=== PATIENT | male | born 1955 | race Caucasian/White ===

== ENCOUNTER 2019-04-19 10:43 | Emergency (ER) | payer MEDICAID ==
[~2019-04-19] VITALS: Ht 182.9 cm; Wt 78.6 kg
[~2019-04-19 10:43] MED LIST: LIDOcaine 1% W/epiNEPHrine 1:100,000 20ml vial ONE
[2019-04-19 10:50] VITALS: BP 155/90
[2019-04-19] MEDS ORDERED: CEPH-572 PO (12:29)
[2019-04-19] MEDS ORDERED: SULF1TAB49 PO (12:29)
== END 2019-04-19 12:43 | disposition home or self-care (01) ==
LOC: ER 10:45
DX: K13.0 Diseases of lips (principal); J44.9 Chronic obstructive pulmonary disease, unspecified; F17.200 Nicotine dependence, unspecified, uncomplicated; Z79.899 Other long term (current) drug therapy
CPT/HCPCS: 10060; 99283

== ENCOUNTER 2019-04-22 17:33 | Inpatient (IN) | payer MEDICARE, MEDICAID ==
[~2019-04-22] VITALS: Ht 180.3 cm; Wt 83.0 kg
[~2019-04-22 17:33] MED LIST changes: +CEPH-572 PO; -LIDOcaine 1% W/epiNEPHrine 1:100,000 20ml vial ONE; +SULF1TAB49 PO
[2019-04-22 17:50] LABS: BASOPHILS # (AUTO) 0.1 X10'3 (0-0.2); BASOPHILS % (AUTO) 0.5 % (0-1); EOSINOPHILS # (AUTO) 0.1 X10'3 (0-0.9); EOSINOPHILS % (AUTO) 1.2 % (0-6); HEMATOCRIT 37.1 % (42.0-52.0); HEMOGLOBIN 12.6 g/dl (14.0-17.9); LYMPHOCYTES # (AUTO) 1.5 X10'3 (1.1-4.8); LYMPHOCYTES % (AUTO) 13.5 % (21-51); MEAN CORPUSCULAR HGB CONC 33.9 g/dL (33.0-36.5); MEAN CORPUSCULAR VOLUME 91.6 FL (78-98); MEAN PLATELET VOLUME 8.7 FL (7.4-10.4); MONOCYTES # (AUTO) 1.2 X10'3 (0-0.9); MONOCYTES % (AUTO) 10.1 % (2-12); NEUTROPHILS # (AUTO) 8.5 X10'3 (1.8-7.7); NEUTROPHILS % (AUTO) 74.7 % (42-75); PLATELET COUNT 234 X10'3 (140-440); RED BLOOD COUNT 4.06 X10'6 (4.70-6.10); RED CELL DISTRIBUTION WIDTH 14.5 % (11.5-14.5); WHITE BLOOD COUNT 11.4 X10'3 (4.5-11.0)
[2019-04-22 18:03] LABS: ALANINE AMINOTRANSFERASE 28 U/L (12-78); ALBUMIN 2.7 G/DL (3.4-5.0); ALBUMIN/GLOBULIN RATIO 0.8 (1.1-1.5); ANION GAP 9 (8-16); ASPARTATE AMINO TRANSFERASE 18 U/L (10-37); BILIRUBIN,TOTAL 0.4 MG/DL (0.1-1.0); BLOOD UREA NITROGEN 39 MG/DL (7-18); BUN/CREATININE RATIO 12.1 (5.4-32.0); CALCIUM 7.8 MG/DL (8.5-10.1); CHLORIDE 99 MMOL/L (99-107); CREATININE 3.22 MG/DL (0.60-1.10); GLUCOSE 145 MG/DL (70-104); POTASSIUM 3.9 MMOL/L (3.5-5.1); SODIUM 132 MMOL/L (135-145); TOTAL CARBON DIOXIDE 24.1 MMOL/L (24-32); TOTAL PROTEIN 6.3 G/DL (6.4-8.2); eGFR 19 ML/MIN
[2019-04-22 18:15] LABS: MAGNESIUM 2.1 MG/DL (1.5-2.4)
[2019-04-22 18:16] LABS: ALKALINE PHOSPHATASE 78 IU/L (46-116)
[2019-04-22] MEDS ORDERED: ARIP10TA17 PO (19:31)
[2019-04-22] MEDS ORDERED: CEPH500C2 PO (19:31)
[2019-04-22] MEDS ORDERED: CLOP75TA35 PO (19:31)
[2019-04-22] MEDS ORDERED: BACDS PO (19:31)
[2019-04-22] MEDS ORDERED: LISI-600 PO (19:31)
[2019-04-22] MEDS ORDERED: ALLO300T8 PO (19:31)
[2019-04-22] MEDS ORDERED: ATOR40TA72 PO (19:31)
[2019-04-22] MEDS ORDERED: TRAZ-219 PO (19:31)
[2019-04-22] MEDS ORDERED: DILT120T3 PO (19:31)
[2019-04-22] MEDS ORDERED: GABA600T13 PO (19:31)
[2019-04-22] MEDS ORDERED: CARV25TA2 PO (19:31)
[2019-04-22] MEDS ORDERED: AMLO5TAB16 PO (19:31)
[2019-04-22] MEDS ORDERED: acetaminophen 325mg tablet PO PRN (22:10)
[2019-04-22] MEDS ORDERED: ondansetron/PF 4mg/2ml inj IV PRN (22:10)
[2019-04-22] MEDS ORDERED: mag hydrox/Alum hydrox/simeth 30ml oral suspension PO PRN (22:10)
[2019-04-22] MEDS ORDERED: magnesium hydroxide 30ml (MOM) UD suspension PO PRN (22:10)
--- NOTE | 2019-04-22 22:18 | NUR ---
Prior to calling admit report to the floor, pt became hypotensive SBP 70 with no evidence of CP/SOB/AMS. Dr. Cruz and Dr. Wu notified. 1L NS bolus initiated and PCU admission placed on hold at this time to stabilize pt.
--- NOTE | 2019-04-22 22:23 | NUR ---
Dr. Wu at bedside for US. 75/50 manual BP by Pedro Gallagher RN
[2019-04-22 22:29] LABS: URINE AMPHETAMINE SCREEN POSITIVE (Neg); URINE BARBITUATE SCREEN NEGATIVE (Neg); URINE BENZODIAZEPINES SCREEN NEGATIVE (Neg); URINE CANNABINOID SCREEN POSITIVE (Neg); URINE COCAINE SCREEN NEGATIVE (Neg); URINE METHADONE SCREEN NEGATIVE (Neg); URINE OPIATE SCREEN NEGATIVE (Neg); URINE PHENCYCLIDINE SCREEN NEGATIVE (Neg)
[2019-04-22] MEDS: normal saline 1000ml 1,000 ML IV SCH (22:59)
[2019-04-23] VITALS (8 sets, daily range): BP systolic 91–121; BP diastolic 52–71
--- NOTE | 2019-04-23 | NUR ---
Patient in room PCU 3025. I have received report from Calderon GAMING (ER) and had the opportunity to ask questions and assume patient care. Patient arrived to PCU, by gurney and ambulated to bed with assistance. A&O x 4, vitals taken and WNL, tele monitoring initiated. Patient is hungry but in good spirits. He is oriented to his room and his call light.
--- NOTE | 2019-04-23 03:00 | NUR ---
Called Dr. Cruz, patient's BP is 83/45 (57), HR 66, new orders for one time dose of calcium gluconate IV 2g and 500mL fluid bolus.
[2019-04-23] MEDS ORDERED: calcium gluconate inj. 2 GM in normal saline 100ml IV soln 100 ML IV ONE (03:15)
[2019-04-23] MEDS ORDERED: normal saline 500ml IV soln 500 ML IV ONE (03:15)
[2019-04-23] MEDS: normal saline 1000ml 1,000 ML IV SCH ×2 (03:46→15:44)
[2019-04-23 05:56] LABS: BASOPHILS % (AUTO) 0.5 % (0-1); EOSINOPHILS # (AUTO) 0.1 X10'3 (0-0.9); EOSINOPHILS % (AUTO) 1.4 % (0-6); HEMATOCRIT 36.2 % (42.0-52.0); HEMOGLOBIN 12.5 g/dl (14.0-17.9); LYMPHOCYTES # (AUTO) 1.4 X10'3 (1.1-4.8); LYMPHOCYTES % (AUTO) 19.5 % (21-51); MEAN CORPUSCULAR HEMOGLOBIN 31.6 PG (27.0-31.0); MEAN CORPUSCULAR HGB CONC 34.5 g/dL (33.0-36.5); MEAN CORPUSCULAR VOLUME 91.7 FL (78-98); MONOCYTES # (AUTO) 0.6 X10'3 (0-0.9); MONOCYTES % (AUTO) 8.2 % (2-12); NEUTROPHILS # (AUTO) 5.2 X10'3 (1.8-7.7); NEUTROPHILS % (AUTO) 70.4 % (42-75); PLATELET COUNT 231 X10'3 (140-440); RED BLOOD COUNT 3.95 X10'6 (4.70-6.10); RED CELL DISTRIBUTION WIDTH 14.3 % (11.5-14.5); WHITE BLOOD COUNT 7.4 X10'3 (4.5-11.0)
[2019-04-23 06:21] LABS: ALBUMIN 2.5 G/DL (3.4-5.0); ANION GAP 7 (8-16); BLOOD UREA NITROGEN 26 MG/DL (7-18); CALCIUM 8.6 MG/DL (8.5-10.1); CHLORIDE 107 MMOL/L (99-107); CREATININE 1.63 MG/DL (0.60-1.10); GLUCOSE 139 MG/DL (70-104); SODIUM 140 MMOL/L (135-145); TOTAL CARBON DIOXIDE 26.4 MMOL/L (24-32); eGFR 43 ML/MIN
--- NOTE | 2019-04-23 06:38 | NUR ---
Problems reprioritized. Patient report given, questions answered & plan of care reviewed with Bernice GAMING and Dolores (student).
--- NOTE | 2019-04-23 06:47 | NUR ---
Patient in room PCU 3025. I have received report from AMBERLY CHRISTOPHER and had the opportunity to ask questions and assume patient care.
[2019-04-23] MEDS: amLODIPine 5mg tablet PO SCH (08:00)
[2019-04-23] MEDS: lisinopril 20mg tablet PO SCH ×2 (08:00→20:13)
[2019-04-23] MEDS: allopurinol 300 MG tablet PO SCH (08:05)
[2019-04-23] MEDS: gabapentin 300mg capsule PO SCH ×2 (08:05→20:12)
[2019-04-23] MEDS: ARIPIPRAZOLE 10 MG TABLET PO SCH (08:05)
[2019-04-23] MEDS: atorvastatin 20mg tablet PO SCH (08:06)
[2019-04-23] MEDS: clopidogrel 75mg tablet PO SCH (08:06)
[2019-04-23] MEDS: nicotine 14mg patch - 24hr TD SCH (08:07)
[2019-04-23] MEDS: heparin, porcine 5000 units/ml vial SQ SCH ×2 (08:09→20:13)
[2019-04-23] MEDS ORDERED: pneumococcal 23-VAL P-sac vacc 25 mcg/0.5ml vial IMVAC ONE (10:00)
--- NOTE | 2019-04-23 10:19 | NUR ---
jhonny reyes and let Dr. Malcolm know that pt has abcess below nose and was on abx out pt that have been held. he will look into it. Addendum: 04/23/19 at 1020 by Bernice Rand RN also aware am bp meds held due to low bp
--- NOTE | 2019-04-23 11:40 | NUR ---
Malnutrition consult: Pt admit w/ syncope hx vertigo HTN, COPD, bladder CA, and current meth abuse. Positive for meth on admit. PT has normal strength, no edema, current wt is pt stated, and well-nourished/well-developed per ER MD note. PO documentation pending. At this time pt lack minimum malnutrition criteria. Will continue to monitor. Addendum: 04/23/19 at [address] Amended: Links added.
--- NOTE | 2019-04-23 14:15 | NUR ---
paged vascular again for carotid u/s
--- NOTE | 2019-04-23 16:01 | NUR ---
paged Dr. Malcolm PAGER ID: [phone] MESSAGE: Bernice flores [phone] Keating prelim carotid paper report in chart if you would like to see it I can bring to you. 0-39% both sides
--- NOTE | 2019-04-23 18:00 | NUR ---
Patient in room PCU 3025. I have received report from Bernice GAMING and had the opportunity to ask questions and assume patient care.
--- NOTE | 2019-04-23 18:29 | NUR ---
Problems reprioritized. Patient report given, questions answered & plan of care reviewed with AMBERLY RAY AND AMBERLY GALARZA.
--- NOTE | 2019-04-23 18:30 | NUR ---
Patient in room PCU 3025. I have received report from Bernice GAMING and had the opportunity to ask questions and assume patient care with shweta GAMING.
--- NOTE | 2019-04-23 18:34 | NUR ---
Student Medication Administration: For this medication-pass time frame, all medication were reviewed, dispensed, administered and documented per hospital policy by ASHUTOSH.
--- NOTE | 2019-04-23 18:34 | NUR ---
Student documentation: I have reviewed and agree with all interventions, assessments performed and documented by ASHUTOSH.
[2019-04-23] MEDS: sulfamethoxazole/trimethoprim DS (800/160mg) tablet PO SCH (20:12)
[2019-04-23] MEDS ORDERED: traZODone 50mg tablet PO SCH (21:00)
[2019-04-24] MEDS: normal saline 1000ml 1,000 ML IV SCH (01:59)
[2019-04-24 03:00] VITALS: BP 131/78
[2019-04-24 05:16] LABS: BASOPHILS % (AUTO) 0.6 % (0-1); EOSINOPHILS # (AUTO) 0.2 X10'3 (0-0.9); EOSINOPHILS % (AUTO) 2.2 % (0-6); HEMATOCRIT 37.9 % (42.0-52.0); HEMOGLOBIN 12.9 g/dl (14.0-17.9); LYMPHOCYTES # (AUTO) 2.1 X10'3 (1.1-4.8); MEAN CORPUSCULAR HEMOGLOBIN 31.5 PG (27.0-31.0); MEAN CORPUSCULAR VOLUME 92.6 FL (78-98); MEAN PLATELET VOLUME 8.8 FL (7.4-10.4); MONOCYTES # (AUTO) 0.5 X10'3 (0-0.9); MONOCYTES % (AUTO) 7.7 % (2-12); NEUTROPHILS % (AUTO) 58.5 % (42-75); PLATELET COUNT 258 X10'3 (140-440); RED CELL DISTRIBUTION WIDTH 14.4 % (11.5-14.5); WHITE BLOOD COUNT 6.8 X10'3 (4.5-11.0)
[2019-04-24 05:27] LABS: ALBUMIN 2.6 G/DL (3.4-5.0); ANION GAP 8 (8-16); BLOOD UREA NITROGEN 18 MG/DL (7-18); BUN/CREATININE RATIO 17.1 (5.4-32.0); CALCIUM 8.4 MG/DL (8.5-10.1); CHLORIDE 109 MMOL/L (99-107); CREATININE 1.05 MG/DL (0.60-1.10); GLUCOSE 92 MG/DL (70-104); POTASSIUM 4.6 MMOL/L (3.5-5.1); SODIUM 140 MMOL/L (135-145); TOTAL CARBON DIOXIDE 22.6 MMOL/L (24-32); eGFR 71 ML/MIN
--- NOTE | 2019-04-24 05:54 | NUR ---
[place] documentation: I have reviewed and agree with all interventions,meds given, assessments performed and documented by Chrystal GAMING.
--- NOTE | 2019-04-24 06:15 | NUR ---
Patient in room PCU 3025B. I have received report from Mariana GAMING and Chrystal GAMING and had the opportunity to ask questions and assume patient care.
--- NOTE | 2019-04-24 06:17 | NUR ---
Problems reprioritized. Patient report given, questions answered & plan of care reviewed with Shanice GAMING.
--- NOTE | 2019-04-24 06:17 | NUR ---
Problems reprioritized. Patient report given, questions answered & plan of care reviewed with Shanice GAMING.
[2019-04-24 06:30] VITALS: BP 142/81
[2019-04-24] MEDS: gabapentin 300mg capsule PO SCH (07:27)
[2019-04-24] MEDS: ARIPIPRAZOLE 10 MG TABLET PO SCH (07:27)
[2019-04-24] MEDS: atorvastatin 20mg tablet PO SCH (07:27)
[2019-04-24] MEDS: nicotine 14mg patch - 24hr TD SCH (07:27)
[2019-04-24] MEDS: clopidogrel 75mg tablet PO SCH (07:27)
[2019-04-24] MEDS: heparin, porcine 5000 units/ml vial SQ SCH (07:27)
[2019-04-24] MEDS: allopurinol 300 MG tablet PO SCH (07:28)
[2019-04-24] MEDS: lisinopril 20mg tablet PO SCH (07:28)
[2019-04-24] MEDS: sulfamethoxazole/trimethoprim DS (800/160mg) tablet PO SCH (07:28)
[2019-04-24] MEDS: amLODIPine 5mg tablet PO SCH (07:28)
[2019-04-24 08:00] VITALS: BP_SYST 111; BP_SYST 124; BP_SYST 131; BP_DIAS 60; BP_DIAS 74; BP_DIAS 79
[2019-04-24 11:00] VITALS: BP 111/60
--- NOTE | 2019-04-24 11:00 | NUR ---
WOC in to check on pt's wound located on premaxillary area. Abscess had apparently been I&D'ed already, though wound presented with no lory drainage at this time. Periwound erythema was pronounced and area is still swollen. Wound bed covered by 100% yellow slough at this time. As pt was getting ready to discharge, measured wound. Wound have recommended leaving it SHEREE with daily cleansing unless drainage presented.
--- NOTE | 2019-04-24 13:15 | NUR ---
Per MD, patient stable for discharge. Discharge packet completed and provided to patient. All questions answered and followup directions provided--stay hydrated, follow up within 6 months with renal ultrasound, followup with PCP within two weeks. IV removed with catheter intact and tele monitor reviewed. Hospital milk house worker approved cost of taxi ride for patient. Patient escorted by RN via wheelchair and taken home via taxi.
== END 2019-04-24 12:47 | disposition home or self-care (01) | DRG 682 ==
LOC: ER 17:33 → ED HOLD 22:21 → PCU 3S 23:39
PROVIDERS: ADMIT Hospitalist; ATTEND Family Medicine
DX: N17.0 Acute kidney failure with tubular necrosis (principal); E43 Unspecified severe protein-calorie malnutrition; E87.1 Hypo-osmolality and hyponatremia; E86.0 Dehydration; F17.210 Nicotine dependence, cigarettes, uncomplicated; I10 Essential (primary) hypertension; I25.10 Atherosclerotic heart disease of native coronary artery without angina pectoris; I95.9 Hypotension, unspecified; W18.39XA Other fall on same level, initial encounter; R00.1 Bradycardia, unspecified; F15.10 Other stimulant abuse, uncomplicated; R55 Syncope and collapse; J44.9 Chronic obstructive pulmonary disease, unspecified; K52.9 Noninfective gastroenteritis and colitis, unspecified; R29.6 Repeated falls; Z82.49 Family history of ischemic heart disease and other diseases of the circulatory system; Z85.51 Personal history of malignant neoplasm of bladder; I25.2 Old myocardial infarction; Z86.14 Personal history of Methicillin resistant Staphylococcus aureus infection; Z95.5 Presence of coronary angioplasty implant and graft; Y93.89 Activity, other specified; Y92.89 Other specified places as the place of occurrence of the external cause; Y99.8 Other external cause status; Z68.25 Body mass index [BMI] 25.0-25.9, adult; Z71.6 Tobacco abuse counseling; Z79.899 Other long term (current) drug therapy; Z71.51 Drug abuse counseling and surveillance of drug abuser
CPT/HCPCS: 36415; 70450; 71045; 76775; 80048; 80053; 80305; 83605; 83735; 84484; 85025; 87081; 93005; 93306; 93880; 99285; G0378; J0610; J1644; J7030; J7040

== ENCOUNTER 2019-12-01 11:43 | Emergency (ER) | payer MEDICARE, MEDICAID ==
[~2019-12-01] VITALS: Ht 182.9 cm; Wt 80.0 kg
[~2019-12-01 11:43] MED LIST changes: +ALLO300T8 PO; +AMLO5TAB16 PO; +ARIP10TA17 PO; +ATOR40TA72 PO; +BACDS PO; -CEPH-572 PO; +CLOP75TA35 PO; +GABA600T13 PO; +LISI-600 PO; -SULF1TAB49 PO; +TRAZ-256 PO
[2019-12-01 11:56] VITALS: BP 112/71
[2019-12-01] MEDS ORDERED: BACDS PO (14:22)
[2019-12-01] MEDS ORDERED: AMOX-422 PO (14:22)
[2019-12-01] MEDS ORDERED: TETanus/Pertussis (Acell)/Diphther VAC/PF (Tdap-Adult) 0.5ml syringe IMVAC ONE (14:25)
== END 2019-12-01 14:52 | disposition home or self-care (01) ==
LOC: ER 11:43
DX: L03.113 Cellulitis of right upper limb (principal); I25.10 Atherosclerotic heart disease of native coronary artery without angina pectoris; I10 Essential (primary) hypertension; J44.9 Chronic obstructive pulmonary disease, unspecified; Z98.890 Other specified postprocedural states; Z79.899 Other long term (current) drug therapy
CPT/HCPCS: 90471; 90715; 99283

== ENCOUNTER 2020-08-21 16:37 | Emergency (ER) | payer MEDICAID, MEDICARE ==
[~2020-08-21] VITALS: Ht 182.9 cm; Wt 81.8 kg
[~2020-08-21 16:37] MED LIST changes: -BACDS PO; +CLOP75TA34 PO; -CLOP75TA35 PO; -LISI-600 PO; +LISI20TA28 PO; +SULF1TAB45 PO
[2020-08-21 16:40] VITALS: BP 102/59
[2020-08-21] MEDS ORDERED: SULF1TAB49 PO (17:27)
== END 2020-08-21 17:40 | disposition home or self-care (01) ==
LOC: ER 16:38
DX: R21 Rash and other nonspecific skin eruption (principal); L29.9 Pruritus, unspecified; I25.10 Atherosclerotic heart disease of native coronary artery without angina pectoris; I10 Essential (primary) hypertension; J44.9 Chronic obstructive pulmonary disease, unspecified; Z79.899 Other long term (current) drug therapy
CPT/HCPCS: 99283

== ENCOUNTER 2021-01-23 21:24 | Emergency (ER) | payer MEDICARE ==
[~2021-01-23] VITALS: Ht 182.9 cm; Wt 77.3 kg
[~2021-01-23 21:24] MED LIST changes: -ARIP10TA17 PO; +ARIP10TA57 PO
[2021-01-23 21:31] VITALS: BP 113/84
[2021-01-24] MEDS ORDERED: SULF1TAB49 PO (01:02)
[2021-01-24] MEDS ORDERED: MUPI22OI30 TOP (01:02)
[2021-01-24] MEDS ORDERED: ibuprofen tablet 400 MG TABLET PO ONE (01:05)
== END 2021-01-24 01:07 | disposition home or self-care (01) ==
LOC: ER 21:24
DX: M54.5 Low back pain (principal); L03.211 Cellulitis of face; I25.10 Atherosclerotic heart disease of native coronary artery without angina pectoris; I10 Essential (primary) hypertension; J44.9 Chronic obstructive pulmonary disease, unspecified; Z85.51 Personal history of malignant neoplasm of bladder; Z98.890 Other specified postprocedural states; Z79.2 Long term (current) use of antibiotics; Z79.899 Other long term (current) drug therapy
CPT/HCPCS: 99283

== ENCOUNTER 2025-05-25 09:58 | Outpatient (CLI) | payer MEDICARE, MEDICAID ==
[~2025-05-25] VITALS: Ht 180.3 cm; Wt 81.6 kg
[~2025-05-25 09:58] MED LIST changes: -ARIP10TA57 PO; +ARIP10TA87 PO; +GABA-1405 PO; -GABA600T13 PO; +SULF-16 PO; -SULF1TAB45 PO
[2025-05-25 10:35] LABS: TOTAL HEMOGLOBIN 16.7 G/dl (13.5-17.5)
[2025-05-25] MEDS: albuterol 2.5 MG/3 ML nebule NEB ONE (11:13)
[2025-05-25 11:17] VITALS: PULSE 69; RESP 16; O2SAT 97
[2025-05-25 11:28] VITALS: PULSE 75; RESP 46
--- NOTE | 2025-05-25 12:35 | RADIOLOGY REPORT ---
EXAM: DI CHEST,TWO VIEWS CLINICAL HISTORY: COPD; BLEVINS TECHNIQUE: Frontal and lateral views of the chest WID: COMPARISON: None FINDINGS: Lines and tubes: None Chest: The heart size and pulmonary vasculature is within normal limits. Calcified plaque projects over the aortic arch. No pleural effusion, pneumothorax, or consolidation. Hyperexpansion of the lungs. The osseous structures are grossly intact. Multifocal thoracic spondylosis. IMPRESSION: 1. No acute cardiopulmonary abnormality. 2. Hyperexpansion of the lungs which can be seen in the setting of COPD/ emphysema.
--- NOTE | 2025-05-25 15:29 | PROCEDURE NOTE - Respiratory ---
Procedure Note-Respiratory Providers to CC Copies To 1: ANAND LAN MD Procedure Name: This is a complete pulmonary function study dated May 25, 2025. Spirometry measurements: Both the forced vital capacity and the FEV1 are in the normal range. The FEV1 ratio is slightly diminished. Some of the flow rates measurements are borderline reduced. After inhaled bronchodilator was administered, there is no appreciable change in the flow volume curve. Spirometry documents mild obstructive ventilatory defect. Lung volume measurements: All of the major lung volume determinations are in the normal range. Lung diffusion measurement: The DLCO measurement is clearly reduced at 15.31. It is noted that the KVO measurement is substantially reduced. The alveolar volume measurement remains in the normal range. It is noted that the hemoglobin measurement is normal. Airway resistance measurement: The airway resistance is not elevated. Conclusion: This study is abnormal. There is evidence for obstructive ventilatory defect although it appears to be quite mild. The lung diffusion measurement however is significantly depressed. These findings are consistent with the patient's diagnosis of smoking-related COPD. It is strongly recommended that the patient abstain from cigarette smoking. The reduction in the DLCO measurement raises the possibility of a significant component of emphysema. We have no previous studies for comparison. Bronchodilator therapy should continue for this patient. KRZYSZTOF WHYTE MD May 25, 2025 15:29
== END 2025-05-25 23:59 | disposition home or self-care (01) ==
LOC: RT 09:58
PROVIDERS: ATTEND Internal Medicine Critical Care Medicine
DX: J44.9 Chronic obstructive pulmonary disease, unspecified (principal); R06.02 Shortness of breath; M47.814 Spondylosis without myelopathy or radiculopathy, thoracic region
CPT/HCPCS: 71046; 85018; 94060; 94727; 94729; 94760; J7030